=== PATIENT | female | born 1985 | race Caucasian/White ===

== ENCOUNTER 2020-03-29 20:55 | Emergency (ER) | payer OTHER ==
[2020-03-29] MEDS ORDERED: Ketorolac 60 MG/2 ML SDV IM ONE (21:33)
--- NOTE | 2020-03-29 21:37 | EDM.PDOC ---
ED HPI GENERAL MEDICAL PROBLEM - General Chief Complaint: Back Pain or Injury Stated Complaint: FELL RT SIDE PAIN Time Seen by Provider: 03/29/20 21:29 Source of Information: Reports: Patient, Family, RN Notes Reviewed History Limitations: Reports: No Limitations - History of Present Illness INITIAL COMMENTS - FREE TEXT/NARRATIVE: 34-year-old female presents emergency department a complaint of rib pain mostly in her back unfortunately she recently slipped on her steps on the ice fell landed in the middle of her back approximately 3 8 through T10 region, she states it hurts to take a deep breath is not having back pain but is having chest pain Right Thoracic Pain Score (Numeric/FACES): 4 - Related Data Allergies Allergy/AdvReac Type Severity Reaction Status Date / Time No Known Allergies Allergy Verified 03/29/20 21:20 Home Meds: Home Meds NK [No Known Home Meds] 03/29/20 [History] Past Medical History 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: Neurological History: Reports: Concussion, Migraines - Infectious Disease History Infectious Disease History: Reports: Chicken Pox - Past Surgical History HEENT Surgical History: Reports: Myringotomy w Tube(s), Other (See Below) Other HEENT Surgeries/Procedures: ear surgery Female Surgical History: Reports: Breast Implant Social & Family History - Tobacco Use Tobacco Use Status *Q: Never Tobacco User - Caffeine Use Caffeine Use: Reports: Coffee - Recreational Drug Use Recreational Drug Use: No ED ROS GENERAL - Review of Systems Review Of Systems: See Below Constitutional: Reports: No Symptoms Respiratory: Reports: Shortness of Breath Cardiovascular: Reports: No Symptoms Musculoskeletal: Reports: Back Pain Skin: Reports: No Symptoms ED EXAM, UPPER BACK/NECK PAIN - Physical Exam Exam: See Below Exam Limited By: No Limitations General Appearance: Alert, Mild Distress Cardiovascular/Respiratory: Regular Rate, Rhythm, Normal Breath Sounds, No Respiratory Distress, Other (Chest wall is tender to palpation lateral aspects to mid back region bilaterally T8-T10 region there is no spinal tenderness to palpation) Course - Vital Signs Last Recorded V/S: Last Vital Signs Temp 98.3 F 03/29/20 21:19 Pulse 85 03/29/20 21:19 Resp 16 03/29/20 21:19 BP 118/72 03/29/20 21:19 Pulse Ox 100 03/29/20 21:19 - Orders/Labs/Meds Orders: Active Orders 24 hr Category Date Time Status Chest 2V [CR] Urgent Exams 03/29/20 21:33 Taken Meds: Medications Discontinued Medications Generic Name Dose Route Start Last Admin Trade Name Jesica PRN Reason Stop Dose Admin Ketorolac Tromethamine 60 mg 03/29/20 21:33 03/29/20 21:44 Toradol IM 03/29/20 21:34 60 mg ONETIME ONE Administration Departure - Departure Time of Disposition: 22:13 Disposition: Home, Self-Care 01 Condition: Fair Clinical Impression: Chest wall pain - Discharge Information Instructions: Chest Wall Pain, [id number] Referrals: Eb Barber MD [Primary Care Provider] - Forms: ED Department Discharge Additional Instructions: Use Tylenol or Motrin as needed for pain control, please followup with your primary care provider in 3-5 days if not better, please call return to the emergency department with worsening of symptoms. We will contact you if the radiologist read is different from what was shown tonight Sepsis Event Note (ED) - Evaluation Sepsis Screening Result: No Definite Risk - Focused Exam Vital Signs: Vital Signs Temp Pulse Resp BP Pulse Ox 03/29/20 21:19 98.3 F 85 16 118/72 100 - My Orders Last 24 Hours: My Active Orders 03/29/20 21:33 Chest 2V [CR] Urgent - Assessment/Plan Last 24 Hours: My Active Orders 03/29/20 21:33 Chest 2V [CR] Urgent Plan: Assessment Acuity = acute Site and laterality = chest wall pain Etiology = secondary trauma Manifestations = none Location of injury = Home Lab values = chest x-ray I did review films myself I cannot appreciate any acute process, the official read from radiology is pending Plan Good improvement from Toradol she will use Tylenol Motrin at home for pain control follow-up primary care 3 to 5 days if not better we will contact her if the radiology read is different This note was dictated using [employer] voice recognition software please call with any questions on syntax or grammar.
--- NOTE | 2020-03-30 09:13 | CR ---
CHEST: 2 view CLINICAL HISTORY:Rib pain, fall COMPARISON:None FINDINGS: The heart size, pulmonary vascularity and hilar structures are normal. No infiltrate effusion or pneumothorax is seen. No rib fractures are seen. Patient is kyphotic. There is also a pectus deformity IMPRESSION: No acute cardiopulmonary process.
== END 2020-03-29 22:34 | disposition home or self-care (01) ==
LOC: JP.ED 20:55
DX: R07.89 Other chest pain (principal); M54.6 Pain in thoracic spine
CPT/HCPCS: 71046; 96372; 99283; J1885

== ENCOUNTER 2021-08-18 21:35 | Emergency (ER) | payer OTHER ==
[2021-08-18] MEDS ORDERED: Sodium Chloride 0.9% 10 ML Syringe FLUSH PRN (22:16)
[2021-08-18] MEDS ORDERED: Sodium Chloride 0.9% 75 ML IV SCH (22:30)
[2021-08-18] MEDS ORDERED: Iopamidol 612 MG/ML 100 ML Bottle IV SCH (22:30)
== END 2021-08-19 00:01 | disposition home or self-care (01) ==
LOC: JP.ED 21:35
DX: S70.02XA Contusion of left hip, initial encounter (principal); S80.01XA Contusion of right knee, initial encounter; V87.7XXA Person injured in collision between other specified motor vehicles (traffic), initial encounter
CPT/HCPCS: 74177; 81025; 99283; 99284-25; Q9967